=== PATIENT | male | born 1965 | race Caucasian/White ===

== ENCOUNTER 2019-05-23 14:08 | Emergency (ER) | payer OTHER ==
[~2019-05-23] VITALS: Ht 188 cm; Wt 122.5 kg
[2019-05-23] MEDS ORDERED: ACETAMINOPHEN ES 500 MG TABLET ONE (14:26)
--- NOTE | 2019-05-23 14:29 | NUR ---
PO tylenol given; wheeled to CT
[2019-05-23] MEDS ORDERED: ACETAMINOPHEN ES 500 MG TABLET PO ONE (14:30)
--- NOTE | 2019-05-23 15:19 | NUR ---
Patient discharged to [facility] in stable condition. Written and verbal after care instructions given. Patient verbalizes understanding of instruction.
[2019-05-23 15:20] VITALS: BP 125/85
== END 2019-05-23 15:20 ==
LOC: ER 14:11
DX: S00.83XA Contusion of other part of head, initial encounter (principal); F17.210 Nicotine dependence, cigarettes, uncomplicated; V49.49XA Driver injured in collision with other motor vehicles in traffic accident, initial encounter; Y93.89 Activity, other specified; Y92.413 State road as the place of occurrence of the external cause; Y99.8 Other external cause status
CPT/HCPCS: 70450-TC; 71045-TC